=== PATIENT | female | born 1935 | race Caucasian/White ===

== ENCOUNTER 2022-08-30 09:30 | Day surgery (SDC) | payer MEDICARE ==
[2022-08-27 11:43] LABS: BASOPHILS # (AUTO) 0.1 X10'3 (0-0.2); BASOPHILS % (AUTO) 0.8 % (0-1); EOSINOPHILS # (AUTO) 0.1 X10'3 (0-0.9); EOSINOPHILS % (AUTO) 1.9 % (0-6); HEMATOCRIT 35.4 % (35.0-45.0); HEMOGLOBIN 11.6 g/dl (12.0-16.0); LYMPHOCYTES # (AUTO) 0.9 X10'3 (1.1-4.8); LYMPHOCYTES % (AUTO) 12.3 % (21-51); MEAN CORPUSCULAR HEMOGLOBIN 30.1 PG (27.0-31.0); MEAN CORPUSCULAR HGB CONC 32.8 g/dL (33.0-36.5); MEAN CORPUSCULAR VOLUME 91.8 FL (78-98); MEAN PLATELET VOLUME 7.5 FL (7.4-10.4); MONOCYTES # (AUTO) 0.7 X10'3 (0-0.9); MONOCYTES % (AUTO) 8.7 % (2-12); NEUTROPHILS # (AUTO) 5.8 X10'3 (1.8-7.7); NEUTROPHILS % (AUTO) 76.3 % (42-75); PLATELET COUNT 261 X10'3 (140-440); RED BLOOD COUNT 3.86 X10'6 (4.20-5.60); WHITE BLOOD COUNT 7.6 X10'3 (4.5-11.0)
[2022-08-27 11:50] LABS: ALBUMIN 3.8 G/DL (3.4-5.0); ANION GAP 9 (8-16); BLOOD UREA NITROGEN 25 MG/DL (7-18); BUN/CREATININE RATIO 18.9 (6.6-38.0); CALCIUM 8.9 MG/DL (8.5-10.1); CHLORIDE 101 MMOL/L (99-107); CREATININE 1.32 MG/DL (0.40-0.90); GLUCOSE 99 MG/DL (70-104); POTASSIUM 3.6 MMOL/L (3.5-5.1); SODIUM 139 MMOL/L (135-145); TOTAL CARBON DIOXIDE 28.6 MMOL/L (24-32); eGFR 38 ML/MIN
[~2022-08-30] VITALS: Ht 149.9 cm; Wt 44.0 kg
[2022-08-30] VITALS (14 sets, daily range): BP systolic 139–175; BP diastolic 50–96
[2022-08-30] MEDS ORDERED: diphenhydrAMINE 25mg capsule PO PRN (09:55)
[2022-08-30] MEDS ORDERED: normal saline 1,000 ML IV SCH (09:55)
[2022-08-30] MEDS ORDERED: LORazepam 0.5 MG tablet PO PRN (09:55)
[2022-08-30] MEDS ORDERED: AMLO2.5T5 PO (10:21)
[2022-08-30] MEDS ORDERED: FLUT1BLS4 (10:21)
[2022-08-30] MEDS ORDERED: METO-395 PO (10:31)
[2022-08-30] MEDS ORDERED: TORS20TA41 PO (10:31)
[2022-08-30] MEDS ORDERED: POTA-207 PO (10:31)
[2022-08-30] MEDS ORDERED: RIVA20TA (10:31)
[2022-08-30] MEDS ORDERED: OXYB5TAB16 PO (10:31)
[2022-08-30] MEDS ORDERED: DORZ10DR2 (10:35)
[2022-08-30] MEDS ORDERED: CITA20TA26 PO (10:35)
[2022-08-30] MEDS ORDERED: LEVO50TA8 PO (10:35)
[2022-08-30] MEDS ORDERED: LATA2.5D14 (10:35)
[2022-08-30] MEDS ORDERED: ATOR40TA72 PO (10:35)
[2022-08-30] MEDS ORDERED: EMPA10TA PO (10:35)
[2022-08-30] MEDS ORDERED: ALBU18HF2 (10:35)
[2022-08-30] MEDS ORDERED: ASPI-1053 PO (10:39)
[2022-08-30] MEDS ORDERED: CHOL100046 PO (10:39)
[2022-08-30] MEDS ORDERED: BRIMONIDINE TARTRATE (10:39)
[2022-08-30] MEDS ORDERED: fentaNYL/PF 50MCG/1 ML 2ML syringe ONE (12:23)
[2022-08-30] MEDS ORDERED: verapamil 2.5 mg/ml inj IV ONE (12:23)
[2022-08-30] MEDS ORDERED: midazolam 1 mg/ML 2ml injection ONE (12:23)
[2022-08-30] MEDS ORDERED: nitroGLYCERIN-Tridil 50MG/D5W 250 ML IV ONE (12:23)
[2022-08-30] MEDS ORDERED: iohexol 350 MG/ML 50ML vial IV ONE (12:24)
[2022-08-30] MEDS ORDERED: iohexol 350MG/ML 100ml bottle IV ONE ×3 (12:24→13:47)
[2022-08-30] MEDS ORDERED: heparin 1,000unit/ml 10ml vial 10 ML ONE (12:24)
[2022-08-30] MEDS ORDERED: LIDOcaine 1% (10mg/ml) 2ml vial ONE (12:24)
[2022-08-30] MEDS ORDERED: heparin 25,000 UNIT/250ml bag 250 ML IV ONE (13:20)
[2022-08-30] MEDS ORDERED: heparin 1,000 UNITS/NS 500ml 500 ML ONE (13:59)
[2022-08-30] MEDS ORDERED: clopidogrel 300mg tablet ONE (14:04)
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
[2022-08-30] MEDS ORDERED: normal saline 1000ml 1,000 ML IV SCH (14:50)
--- NOTE | 2022-08-30 16:30 | NUR ---
Right radial site oozing, holding releasing more air from vasc band.
--- NOTE | 2022-08-30 17:30 | NUR ---
Pt up amb to restroom, void in toilet gait steady with contact assist.
--- NOTE | 2022-08-30 17:59 | NUR ---
Bedside Report given to Polina CAMPBELL.
--- NOTE | 2022-08-30 18:05 | NUR ---
Assumed care of patient, rec report from Fanny CAMPBELL. Pt vitals stable, radial band intact without bleeding or hematoma. Currently eating dinner.
== END 2022-08-30 20:00 | disposition home or self-care (01) ==
LOC: SSTAY O 09:30
PROVIDERS: ATTEND Internal Medicine Cardiovascular Disease
DX: I11.0 Hypertensive heart disease with heart failure (principal); I50.30 Unspecified diastolic (congestive) heart failure; R53.83 Other fatigue; R06.02 Shortness of breath; I48.0 Paroxysmal atrial fibrillation; I08.3 Combined rheumatic disorders of mitral, aortic and tricuspid valves; E78.5 Hyperlipidemia, unspecified; Z79.899 Other long term (current) drug therapy; Z79.82 Long term (current) use of aspirin; Z98.890 Other specified postprocedural states; Z82.49 Family history of ischemic heart disease and other diseases of the circulatory system
CPT/HCPCS: 36415; 76937; 80048; 85025; 85347; 93005; 93458; 93567; 99152; 99153; C1725; C1751; C1769; C1874; C1894; C9600; J1644; J2250; J3010; J3490; J7030; Q9967; 92928; A4620; A6258; A6449